=== PATIENT | male | born 1965 | race Caucasian/White ===

== ENCOUNTER → 2022-02-17 | Outpatient (CLI) | payer BC ==
[2022-02-17 19:11] LABS: HCT 46.9 % (39.6-50.0); HGB 14.6 g/dL (13.0-17.0); MCH 25.3 pg (27.0-32.0); MCHC 31.1 g/dL (32.0-37.0); MCV 81.1 fL (80.0-97.0); Mean Platelet Volume 11.3 fL (9.5-12.2); NRBC Per 100 WBC 0 /100 WBCS (0.0-0.0); Platelet Count 257 X 10*3/uL (140-440); RBC 5.78 X 10*6/uL (4.40-5.60); RDW 13.5 % (11.5-14.5); WBC 5.91 X 10*3/uL (4.50-10.00)
[2022-02-17 19:50] LABS: African American GFR (CKD) 76.8 (60.0-200.0); Anion Gap 11.6 mmol/L (10.00-18.00); Blood Urea Nitrogen 16.5 mg/dL (9.0-27.0); Carbon Dioxide 24.4 mmol/L (20.0-27.5); Non-African American GFR(CKD) 66.3 (60.0-200.0); Potassium 4.8 mmol/L (3.5-5.5)
== END | disposition home or self-care (01) ==
LOC: LABPAT 10:53
PROVIDERS: ATTEND Internal Medicine
DX: Z01.812 Encounter for preprocedural laboratory examination (principal); R07.9 Chest pain, unspecified; R06.02 Shortness of breath
CPT/HCPCS: 80051; 82565; 84520; 85027

== ENCOUNTER 2022-02-23 09:00 | Day surgery (SDC) | payer BC ==
[2022-02-22 10:07] VITALS: BMI 31.7
[~2022-02-23 09:00] MED LIST: ALPRAZolam 0.25 MG TAB PO PRN; ALPRAZolam 0.5 MG TAB PO PRN; ASPIRIN 325 MG TAB PO ONE; NITROGLYCERIN SL TABS 0.4 MG TAB SUBLINGUAL PRN; SODIUM CHLORIDE 0.9% 1,000 ML in EMPTY BAG 1 BAG IV SCH
[2022-02-23 09:35] VITALS: RESP 18; TEMP 98.9
[2022-02-23] MEDS ORDERED: fentaNYL (PF) 50 MCG/ML 2 ML AMP ONE (09:58)
[2022-02-23] MEDS ORDERED: HEPARIN SODIUM 1,000 UN/ML (10ML VL) ONE (09:58)
[2022-02-23] MEDS ORDERED: VERAPAMIL 2.5 MG/ML 2 ML AMP ONE (09:58)
[2022-02-23] MEDS ORDERED: MIDAZOLAM 2 MG/2 ML VIAL IVP ONE (10:13)
[2022-02-23] MEDS ORDERED: fentaNYL (PF) 50 MCG/ML 2 ML AMP IVP ONE (10:14)
[2022-02-23] MEDS ORDERED: LIDOCAINE 1% INJ 10MG/ML (5 ML VIAL-PF) IV ONE (10:20)
[2022-02-23] MEDS ORDERED: HEPARIN SODIUM 1,000 UN/ML (10ML VL) IVP ONE (10:24)
[2022-02-23] MEDS ORDERED: IOPAMIDOL-370 125ML BTL INJ ONE (10:38)
[2022-02-23] MEDS ORDERED: IOPAMIDOL-370 100ML BTL INJ ONE ×2 (10:38)
--- NOTE | 2022-02-23 10:44 | P.CARDCATH ---
Description of Procedure: PROCEDURES PERFORMED: Left heart catheterization, bilateral coronary angiography INDICATION: Chest pain, shortness of breath concerning for unstable angina CONSENT:I have discussed the risks, benefits and alternative therapies for the above-mentioned procedure and for both sedation/analgesia as well as necessary blood product administration, if indicated, as they pertain to this patient. The patient has indicated understanding and acceptance of the risks and procedures discussed. PROCEDURE: After the risks, benefits and alternatives of the above mentioned procedure explained in detail with the patient, informed consent was obtained. Patient was taken to the catheterization lab and prepped and draped in usual fashion. 1% lidocaine was used to anesthetize the right radial artery. A 6- Greek sheath was placed in the right radial artery using modified Seldinger technique. Left coronary angiography was performed with a 5-Greek JL 3.5 catheter and right coronary angiography was performed with a 5-Greek JR5 catheter in various views. A 5-Greek FR5 catheter was inserted into the left ventricle and pressure measurements were obtained. The circumflex was noted to be small with a long left main concerning for possible anomalous circumflex from the RCA and therefore right coronary cusp angiogram was performed with a ER 2 which showed no anomalous circumflex with circumflex territory mainly covered by PLV branch. Next a 6-Greek pigtail catheter was advanced into the left ventricle and left ventriculogram was performed in the DONNELLY projection with power injection. The right radial sheath was removed and a TR band was placed with hemostasis achieved. The patient tolerated the procedure well. Patient was transported back to the post catheterization holding area in stable condition. Conscious Sedation: Patient was monitored under the direct supervision of vision of myself for conscious sedation using Versed and fentanyl for a total duration of 21 minutes HEMODYNAMICS: Aorta: 121/77 LV: 114/5, LVEDP 12 Left Ventriculogram: Left ventricular ejection fraction 55% without wall motion abnormalities. No significant mitral regurgitation. SELECTIVE CORONARY ARTERIOGRAPHY: LEFT MAIN: The left main is a large caliber vessel which bifurcates into the LAD and circumflex. There is no significant stenosis. LEFT ANTERIOR DESCENDING CORONARY ARTERY: LAD is a large caliber vessel which comes short of the apex. [place] mainly supplied by PDA. There is no significant stenosis. LEFT CIRCUMFLEX CORONARY ARTERY: Left circumflex is a small caliber vessel without significant stenosis. RIGHT CORONARY ARTERY: The right coronary artery is a large caliber vessel which gives off a PDA and PLV branch and is the dominant vessel. There is no significant stenosis. There is MARIS 2-3 flow of the distal PDA. FINAL IMPRESSION: 1. Normal coronary arteries as described above. 2. Normal left sided filling pressures 3. Normal left ventricular ejection fraction 55% PLAN: 1. Aggressive risk factor modification per most recent ACC/AHA guidelines. 2. Follow-up in the office in 1-2 weeks. 3. Mild MARIS 2-3 flow noted of the distal PDA. If patient still having significant symptoms may consider antianginals.
[2022-02-23 14:45] VITALS: BP 118/74; PULSE 67
== END 2022-02-23 14:49 | disposition home or self-care (01) ==
LOC: CATHCVL 09:00
PROVIDERS: ATTEND Internal Medicine
DX: R07.9 Chest pain, unspecified (principal); Q25.0 Patent ductus arteriosus; R06.02 Shortness of breath; I10 Essential (primary) hypertension; E78.5 Hyperlipidemia, unspecified
CPT/HCPCS: 93458; C1769; C1894; J2250; J2001; J3010; J1644; Q9967 ×2

== ENCOUNTER 2023-09-24 20:42 | Emergency (ER) | payer BC | END 2023-09-24 22:55 | disposition left against medical advice (07) | LOC: EC 20:42 | DX: Z53.21 Procedure and treatment not carried out due to patient leaving prior to being seen by health care provider (principal) | CPT/HCPCS: 99499 ==